=== PATIENT | male | born 1975 | race Hispanic/Latino ===

== ENCOUNTER 2017-01-16 07:29 | Day surgery (SDC) | payer OTHER ==
[2017-01-16 08:45] LABS: Basophils % (Auto) 0.6 % (0.0-1.8); Eosinophils % (Auto) 2.3 % (0.0-4.3); Hematocrit 48.3 % (35.5-45.6); Hemoglobin 16.5 gm/dl (11.8-15.2); Mean Corpuscular HGB Conc 34 % (32-34); Mean Corpuscular Hemoglobin 31 pg (28-32); Mean Corpuscular Volume 91 fl (84-94); Platelet Count 145 K/mm3 (140-440); Red Blood Count 5.29 M/mm3 (3.65-5.03); Red Cell Distribution Width 14.7 % (13.2-15.2); White Blood Count 7.1 K/mm3 (4.5-11.0)
[2017-01-16 08:54] LABS: INR 1.37 (0.87-1.13)
[2017-01-16] MEDS ORDERED: NACL 0.9% 500 ML 500 ML IV SCH (09:00)
[2017-01-16 09:07] LABS: Anion Gap 17 mmol/L; BUN/Creatinine Ratio 27.14; Blood Urea Nitrogen 19 mg/dL (9-20); Calcium 9.6 mg/dL (8.4-10.2); Carbon Dioxide 25 mmol/L (22-30); Chloride 103.1 mmol/L (98-107); Glucose 118 mg/dL (75-100); Potassium 4.3 mmol/L (3.6-5.0); Sodium 141 mmol/L (137-145)
[2017-01-16] MEDS: VERSED ONE ×2 (10:49→11:01)
[2017-01-16] MEDS: SUBLIMAZE ONE ×2 (10:49→11:01)
[2017-01-16] MEDS: HEPARIN/NS 5000 UNIT/500ML(CATH LAB) 1,000 ML IR ONE ×2 (10:50→11:01)
[2017-01-16] MEDS: XYLOCAINE 2% INFILTRATI ONE ×3 (10:50→11:05)
[2017-01-16] MEDS: HEPARIN 10,000 UNITS/10 ML ONE ×2 (10:50→11:06)
[2017-01-16] MEDS: CALAN ONE ×2 (10:50→11:06)
[2017-01-16] MEDS: NITROGLYCERIN SYRINGE 3 ML ONE ×2 (10:51→11:06)
--- NOTE | 2017-01-16 12:06 | Cardiac Catherization Report ---
CARDIAC CATHETERIZATION REFERRING PHYSICIAN: Dr. Gamboa and Dr. Hanson. INDICATION FOR PROCEDURE: The patient is a pleasant 41-year-old gentleman with a history of hypertrophic obstructive cardiomyopathy and atrial fibrillation, on Eliquis, anticipated myomectomy to be performed in [address] Gamboa at [facility]. PROCEDURE IN DETAIL: The patient was brought to the labor relations worker in a postabsorptive state, prepped and draped in sterile fashion. Benito's test in right hand was normal. The patient has been off Eliquis for greater than 2 days. A 2 mL of 2% lidocaine was used to anesthetize the right wrist. A standard 6-Romansh hydrophilic sheath used to cannulate the right radial artery via modified Seldinger technique. All exchanges performed to exchange a J-tip guidewire. JL3.5 catheter used to engage the left main. No dampening or ventricularization. Cineangiography performed in all projections. JR4 catheter used to cross the aortic valve under fluoroscopic guidance. Left ventriculography performed in 30 [place] and 30 [place] projections via hand injections, catheter flushed. Manual pullback performed with continuous pressure monitoring. Catheter used to engage the right coronary. No dampening or ventricularization. Cineangiography performed in all projections. DATA: The patient remained in atrial fibrillation throughout the procedure. Aortic pressure is 150/90, LV pressure is 150, LVEDP of 20 mmHg. After PVC, gradient is 40-50 mmHg. CORONARY ANATOMY: This is a right dominant system. Right coronary is a moderate sized vessel, courses AV groove, distally bifurcates in the posterior descending and posterolateral branch, sluggish flow, HUNG 2 to 2.5 flow, but no obstructive disease identified. Left main without significant disease, bifurcates in left anterior descending and left circumflex. Left circumflex is a moderate sized vessel, courses AV groove, large OM trunk. No significant disease. LAD is a moderate sized vessel, courses anterior intergroove, wraps around the apex, no significant disease, sluggish flow. The intracavitary gradient at rest is unremarkable. Brockenbrough phenomenon is noted after PVC, the gradient is approximately 40-50 mmHg. CONCLUSIONS: 1. No angiographic evidence of significant epicardial coronary artery disease in this right dominant system. 2. Normal left ventricular systolic performance, estimated ejection fraction of 55-60%. 3. Positive Brockenbrough phenomenon with post-PVC gradient of approximately 40-50 mmHg. PLAN: The patient is scheduled to have myomectomy and maze procedure in 2 days. He will continue to hold his Eliquis. Results of procedure explained to the patient and family. All questions and concerns were addressed. JOB# [id number] SBM/NTS
[2017-01-16 13:39] VITALS: BP 123/96
--- NOTE | 2017-01-16 14:01 | Short Stay Summary ---
Short Stay Documentation Date of service: 01/16/17 - History H&P: obtained from office - Allergies and Medications Current Medications: Allergies diphenhydramine HCl [From Benadryl] Allergy (Mild, Verified 01/16/17 08:28) Unknown Home Medications Medication Instructions Recorded Confirmed Last Taken Type ALBUTEROL Inhaler [ProAir HFA 1 puff INHALATION PRN PRN 01/16/17 01/16/17 History Inhaler] 1 puff Apixaban [Eliquis] 5 mg PO DAILY 01/16/17 01/16/17 01/12/17 History 5mg Docosahexanoic Acid [Algal [place]-3 200 mg PO BID 01/16/17 01/16/17 01/15/17 History Dha] 1 cap Gabapentin [Neurontin] 300 mg PO BID PRN 01/16/17 01/16/17 01/15/17 History 300mg Losartan [Cozaar] 100 mg PO DAILY 01/16/17 01/16/17 01/16/17 06:30 History Metoprolol [Lopressor TAB] 100 mg PO DAILY 01/16/17 01/16/17 01/16/17 06:30 History 100mg Zolpidem [Ambien] 5 mg PO HS PRN 01/16/17 01/16/17 01/15/17 History 5mg Active Medications Sodium Chloride (Nacl 0.9% 500 Ml) 500 mls @ 50 mls/hr IV DIRECT YG Stop: 01/16/17 18:59 Last Admin: 01/16/17 08:50 Dose: 50 mls/hr - Brief post op/procedure progress note Date of procedure: 01/16/17 Pre-op diagnosis: CMP Post-op diagnosis: same Procedure: [facility] - see cath report Anesthesia: local Estimated blood loss: none Condition: stable - Disposition Condition at discharge: Stable Disposition: DC-01 TO HOME OR SELFCARE - Discharge Diagnoses (1) Cardiomyopathy Status: Chronic Qualifiers: Cardiomyopathy type: C (2) Hypertension Status: Chronic Qualifiers: Hypertension type: H (3) Atrial fibrillation Status: Chronic Qualifiers: Atrial fibrillation type: A Short Stay Discharge Plan Activity: advance as tolerated Diet: low fat, low cholesterol, low salt Wound: open to air, keep clean and dry, per your surgeon's advice Additional Instructions: Make follow up appointment with Dr.S.Mohan [phone] Forms: CardCath PCI D/C Instructions, Post Sedation D/C Instructions
== END 2017-01-16 13:55 | disposition home or self-care (01) ==
LOC: CATHLABREC 07:29
PROVIDERS: ATTEND Internal Medicine
DX: I42.1 Obstructive hypertrophic cardiomyopathy (principal); I48.2 Chronic atrial fibrillation; I10 Essential (primary) hypertension; J45.909 Unspecified asthma, uncomplicated; E66.3 Overweight; Z68.35 Body mass index [BMI] 35.0-35.9, adult; Z88.8 Allergy status to other drugs, medicaments and biological substances; Z79.899 Other long term (current) drug therapy; Z87.891 Personal history of nicotine dependence; Z72.89 Other problems related to lifestyle; Z87.01 Personal history of pneumonia (recurrent); Z98.890 Other specified postprocedural states
CPT/HCPCS: 36415; 80048; 85025; 85610; 85730; 93005; 93010; 93458; C1894; J1644; J2250; J3010; J7040; Q9967